=== PATIENT | female | born 1995 | race Caucasian/White ===

== ENCOUNTER 2017-01-31 08:45 | Emergency (ER) | payer MEDICARE ==
[~2017-01-31] VITALS: Ht 154.9 cm; Wt 90.7 kg
[~2017-01-31 08:45] MED LIST: [UNRECOGNIZED DRUG - OTHER]
[2017-01-31 08:49] VITALS: BP 121/73
[2017-01-31 08:50] VITALS: BP 121/73
[2017-01-31] MEDS ORDERED: PEPTO BISMOL PO (08:53)
[2017-01-31] MEDS ORDERED: MOTRIN600 MG PO (08:54)
--- NOTE | 2017-01-31 08:57 | NUR ---
URINE CUP GIVEN. PT AMBUALTE TO RESTROOM.
--- NOTE | 2017-01-31 12:50 | NUR ---
PATIENT CALLED FROM [facility] ANSWER PATIENT IS LWBS.
== END 2017-01-31 12:45 | disposition left against medical advice (07) ==
LOC: MED 08:45
DX: R10.13 Epigastric pain (principal); Z53.21 Procedure and treatment not carried out due to patient leaving prior to being seen by health care provider